=== PATIENT | male | born 1975 | race Caucasian/White ===

== ENCOUNTER 2020-02-23 07:20 | Day surgery (SDC) | payer OTHER ==
[~2020-02-23] VITALS: Ht 185.4 cm; Wt 93.0 kg
[~2020-02-23 07:20] MED LIST: FISH OIL + D31 EACH PO; MULTI VITAMIN1 EACH PO
[2020-02-23] MEDS ORDERED: HYDROCODON-ACE1 EA11 PO (11:38)
--- NOTE | 2020-02-23 12:00 | NUR ---
02/23/20 1200 Mariam Crabtree 1138 PT ARRIVED IN PACU SLEEPY WITH NO C/O'S. BREG BRACE PLACED ON R KNEE BY PRIMO. 1145 CRYO CUFF ON R KNEE PER DR LEON. NO C/O'S. 1200 MOVING LEGS/FEET. NO C/O'S.
--- NOTE | 2020-02-23 12:20 | NUR ---
1210: PT ARRIVES TO DS RM 12 FROM PACU AWAKE. PT DENIES NAUSEA AND STATES SOME "SORENESS" IN RIGHT KNEE. PT ENCOURAGED TO USE NUMBERIC PAIN SCALE AND STATES 5/10 AND "IT JUST FEELS REALLY COLD" PT DENIES ORAL PAIN MEDICATION AT THIS TIME. PT ENC TO LET RN KNOW IF PAIN INCREASES AND WHEN HE WOULD LIKE PAIN MEDICINE. PT PROVIDED ICED WATER, TOLERATES WITH NO NAUSEA. PT SPOUSE AT BEDSIDE. CALL LIGHT WITHIN REACH.
--- NOTE | 2020-02-23 13:09 | OR ---
[facility] [address], [place] [address] Signed DATE OF OPERATION: 02/23/2020 SURGEON: Nora Troncoso MD PREOPERATIVE DIAGNOSIS: Anterior cruciate ligament tear, right knee. POSTOPERATIVE DIAGNOSIS: Anterior cruciate ligament tear, right knee. PROCEDURE PERFORMED: Right knee arthroscopy with anterior cruciate ligament reconstruction using quadriceps graft. HELP DESK CONSULTANT: Tenisha Toledo PA-C. ANESTHESIA: Spinal. BLOOD LOSS: Minimal. 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 He had a prior ACL reconstruction about 10-12 years ago done in [place]. This had worked well until he was hit by the cow. After that, he was noted to be unstable. MRI confirmed the ACL tear. Risks and benefits of operative treatment were discussed with him and he elected to proceed. DESCRIPTION OF PROCEDURE: Once consent was obtained, he was taken to the operating room. After adequate anesthesia, he was placed on operating room table. Left leg was flexed, abducted, and externally rotated on a well-padded leg esposito. The right was placed in well-padded proximal thigh tourniquet and placed in leg esposito. Portal sites were pre-injected using 0.25% Marcaine with epinephrine under alcohol prep. The leg was then prepped and draped in a standard sterile fashion. Standard inferolateral and superolateral portal were made and the scope was introduced in the knee. ARTHROSCOPIC FINDINGS: Electronically Signed By: NORA TRONCOSO MD 02/23/20 1309 PATIENT NAME: ANGELINE ETLLEZ V OPERATIVE REPORT DATE OF : 71 REPORT #: [id number] PHYSICIAN: NORA TRONCOSO MD PCP: NO PRIMARY CARE PHYSICIAN REPORT IS CONFIDENTIAL AND NOT TO BE RELEASED WITHOUT AUTHORIZATION [facility] [address] [place], [place] [address] Signed There was moderate synovitis throughout the knee. All chondral surfaces were noted to be intact essentially. The ACL was noted to be torn from its femoral attachment. The PCL was intact. The menisci were intact. Standard low medial portal was established after localization using a spinal needle. The fat pad was trimmed back to allow good visualization. The whole graft was evaluated, palpated and found to be incompetent. It was then removed using a large shaver. We did locate the femoral interference screw and removed it. The prior reconstruction was done in the old technique with femoral tunnel at about 11 to 11:30 and the tibial tunnel fairly vertical and lateral. We thought that he would benefit from new tunnels using the FlipCutter and the reverse cutting drill. The scope was then withdrawn. We elected to go ahead and proceed with getting the graft. A 2-inch incision was made above from the superior pole of patella superiorly. This carried through skin and subcutaneous tissue. The peritenon over the quad tendon was then split and elevated. An 11 mm segment of the tendon was taken 60 mm long. This was taken to the back table and prepared by placing a FiberTag on both ends for the standard Arthrex technique. The defect was then closed using 2-0 Vicryl and the subcutaneous tissue was closed with 2-0 Stratafix, and 3-0 Monocryl for the skin. The graft was repaired with the FiberTag as stated above. The graft was then measured to a 10 x 60. We placed it in the graft table under tension, wrapped with saline-soaked sponge. Attention was then turned to drilling the holes. The scope was placed back into the knee and the guide was placed at the 9:30 to 10:00 position on the femur, brought up against the lateral epicondyle. A separate stab incision was made and the FlipCutter was drilled out into the notch. It was then flipped and a 20 mm tunnel was created. The FiberStick was then placed through this and brought into the notch of the knee and brought out the medial portal. The tibial tunnel was drilled using a similar technique. This was done through a separate stab incision lateral and a little bit inferior to the prior tunnel. We were able to avoid the tibial screw, which was quite deep. The tunnel was drilled all the way out. It was then cleaned up with debris and all bone debris was removed. The FiberStick was then placed through this and brought out through the medial portal. We then placed the femoral end of the graft through the femoral FiberStick and brought it out through the anterior lateral femur. Utilizing the blue suture, we were able to pull the graft until was well-seated in the femoral tunnel and the graft was tightened. We then similarly pulled the tibial graft into the tibial tunnel and brought it out through the anteromedial surface. Placing the large button over the FiberTag, we were able to tighten it down completely. There was excellent fixation. We then over tied the suture ends and cut them. We then tightened the femoral side one more time. He had excellent range of motion. He was cleared from full extension all the way to 100 degrees of flexion. He had an excellent Janine's at the end of the procedure. All wounds were then cleansed and closed using 3-0 nylon and dressed with an Acticoat dressing. An Dilip wrap was placed. He was taken to the recovery room in satisfactory condition. All sponge, needle, and instrument counts were correct. Electronically Signed By: NORA TRONCOSO MD 02/23/20 1309 PATIENT NAME: ANGELINE TELLEZ V OPERATIVE REPORT DATE OF : 71 REPORT #: [id number] PHYSICIAN: NORA TRONCOSO MD PCP: NO PRIMARY CARE PHYSICIAN REPORT IS CONFIDENTIAL AND NOT TO BE RELEASED WITHOUT AUTHORIZATION [address] [place] [address] Signed Nora Troncoso MD BA/MODL /[id number] Copies: ~ Electronically Signed By: NORA TRONCOSO MD 02/23/20 1309 PATIENT NAME: ANGELINE TELLEZ V OPERATIVE REPORT DATE OF : 71 REPORT #: [id number] PHYSICIAN: NORA TRONCOSO MD PCP: NO PRIMARY CARE PHYSICIAN REPORT IS CONFIDENTIAL AND NOT TO BE RELEASED WITHOUT AUTHORIZATION
--- NOTE | 2020-02-23 13:30 | NUR ---
LE PATIENT REPORTS PAIN MEDICAITON DECREASED PAIN FROM 7/10 ON PAIN SCALE AT INSCISION SITE OF RIGHT KNEE TO A 4/10 ON PAIN SCALE AND REPORTS PAIN MORE TOLERABLE. PATIENT REQUESTS TO HAVE PAIN MEDICATION BEFORE DISCHARGING, BOTH PATIENT AND ARE NERVOUS ABOUT PATIENT HAVING TO RIDE IN CAR BACK TO [place]. WILL NOTIFIY DR. ROSADO OF REQUEST. PATIENT EATING LUNCH, NO NAUSEA. NO OTHER NEEDS AT THIS TIME.
--- NOTE | 2020-02-23 14:25 | NUR ---
DISCUSSED PAIN CONTROL WITH RICHARD HUDSON. INTO ROOM TO ASSESS PATIENT AND OFFERED PATIENT ANOTHER BLOCK FOR PAIN CONTROL. PATIENT REFUSED FURTHER BLOCK AND STATED " THE PAIN PILL IS WORKING PRETTY GOOD NOW" THE AND PATIENT DISCUSSED FURTHER THEIR CONCERNS OF DRIVING HOME. DRESSING TO RIGHT KNEE C/D/I STRONG PEDAL PULSE, WARM SKIN. CRYO ICE IN PLACE WITH KNEE IMMOBILIZER. PATIENT REPORTS PAIN 4/10 ON PAIN SCALE.
--- NOTE | 2020-02-23 15:13 | NUR ---
PATIENT UP TO BATHROOM, NOTED SHEETS SATURATED WITH URINE. PATIENT AMBULATED DOWN TO BATHROOM WITH WALKER. TOLERATED ACTIVITY WELL, PATIENT DRIBBLED INTO URINAL. ABDOMEN DISTENDED AND FIRM. BLADDER SCAN >900 ML. PROVIDED PATIENT WITH STRAIGHT CATH, URINE DRAINING INTO BAG. PATIENT TOLERATED STRAIGHT CATH WELL. LINEN WAS CHANGED, PATIENT RESTING BACK WITH CRYO CUFF AND BRACE IN PLACE. PATIENT RATES PAIN 3/10 ON PAIN SCALE. CALL LIGHT WITHIN REACH. DEMONSTRATED USE OF CRYO CUFF TO AND PATIENT AND DISCUSSED INSTRUCTION OF USE.
--- NOTE | 2020-02-23 15:25 | NUR ---
CALLED AND NOTIFIED DR. ROSADO OF PATIENT NEEDING STRAIGHT CATH AND COLLECTED TELEPHONE ORDER TO STRAIGHT CATH AND INPUTED INTO COMPUTER. UPDATED DR. ROSADO ON PATIENT ABILITY TO TOLERATE ACTIVITY AMBULATING TO BATHROOM, GOOD PAIN CONTROL, EATING AND DRINKING WELL. CRITERIA NEEDED TO MEET DISCHARGE IS TO BE ABLE TO URINATE.
--- NOTE | 2020-02-23 16:30 | NUR ---
PATIENT DRINKING DIFFERENT FLUIDS AND RESTING BACK IN BED WITH AT BEDSIDE. DRESSING TO RIGHT KNEE C/D/I. STRONG PEDAL PULSE. CRYO IN PLACE. PATIENT STATES " THIS BRACE SEEMS TO REALLY HELP" ASSISTED PATIENT WITH INSTRUCTION ON HOW TO MOVE SURGICAL LEG OUT OF BED WITH ASSISTANCE OF OTHER LEG TO DECREASE PAIN. PATIENT DEMONSTRATED AND TOLERATED ACTIVITY WELL. BLADDER SCAN REFLECTED ZERO ML. ENCOURAGED PATIENT TO DRINK MORE FLUIDS. CALL LIGHT WITHIN REACH.
--- NOTE | 2020-02-23 17:00 | NUR ---
PATIENT BLADDER SCANNED FOR 500 ML, PATIENT THEN UP TO BATHROOM STBY WITH WALKER. VOIDED 650 ML, PVR SCAN <10 ML. REMOVED IV, CATH TIP INTACT, AND APPLIED PRESSURE WRAP. PATIENT DRESSED SELF. ADMINISTERED PAIN MEDICAITON BEFORE LEAVING, PROVIDED DISCHARGE INSTRUCTION, READ OUT LOUD INSTRUCTIONS AND PATIENT VERBALIZED AND DEMONSTRATED INSTRUCTION. PROVIDED PATIENT WITH FRESH ICE IN THE CRYO, AND ICE BAGS TO PLACE ON LEG FOR DRIVE HOME. PATIENT TRANSFERED INTO VEHICLE WELL.
== END 2020-02-23 17:30 | disposition home or self-care (01) ==
LOC: DS 07:20
PROVIDERS: ATTEND Specialist
PROC: 3E0T3BZ Introduction of Anesthetic Agent into Peripheral Nerves and Plexi, Percutaneous Approach (ICD-10-PCS; 2020-02-23)
PROC: 3E0T33Z Introduction of Anti-inflammatory into Peripheral Nerves and Plexi, Percutaneous Approach (ICD-10-PCS; 2020-02-23)
PROC: 0MQN4ZZ Repair Right Knee Bursa and Ligament, Percutaneous Endoscopic Approach (ICD-10-PCS; principal; 2020-02-23 09:00)
DX: S83.511A Sprain of anterior cruciate ligament of right knee, initial encounter (principal); G89.18 Other acute postprocedural pain; G47.30 Sleep apnea, unspecified; W55.22XA Struck by cow, initial encounter; Y93.K9 Activity, other involving animal care; Y92.79 Other farm location as the place of occurrence of the external cause; Y99.0 Civilian activity done for income or pay; Z01.812 Encounter for preprocedural laboratory examination; Z20.828 Contact with and (suspected) exposure to other viral communicable diseases
CPT/HCPCS: 01400; 64447; 64450; 76942; A9270; C1713; C1776; J0690; J0735; J1100; J1885; J2001; J2250; J2405; J2704; J2765; J3010; J7121